=== PATIENT | male | born 1985 | race Caucasian/White ===

== ENCOUNTER 2024-09-11 08:27 | Day surgery (SDC) | payer OTHER ==
[~2024-09-11] VITALS: Ht 185.4 cm; Wt 75.3 kg
[~2024-09-11 08:27] MED LIST: Apriso0.375 GM PO; CEPH500 PO; MESA250ER PO
[2024-09-11] MEDS ORDERED: Lactated Ringer's 1,000 ML IV ONE ×2 (09:04→09:46)
[2024-09-11] MEDS ORDERED: propofoL 50 ML IV ONE (09:04)
[2024-09-11 11:43] VITALS: BP 114/75
== END 2024-09-11 11:38 | disposition home or self-care (01) ==
LOC: ORSCSDS 08:27
DX: K51.90 Ulcerative colitis, unspecified, without complications (principal); D50.9 Iron deficiency anemia, unspecified; Z87.19 Personal history of other diseases of the digestive system; Z79.899 Other long term (current) drug therapy
CPT/HCPCS: 88305; J2704; J7120